=== PATIENT | female | born 1985 | race African-American/Black ===

== ENCOUNTER 2017-05-09 10:35 | Emergency (ER) | payer SELFPAY ==
[~2017-05-09] VITALS: Ht 170.2 cm; Wt 150.0 kg
[2017-05-09] MEDS ORDERED: AMMONIA INHALATION 1EA INH ONE (11:00)
[2017-05-09 11:09] LABS: BASOPHILS % 0.5 % (0.0-2.0); EOSINOPHILS % 2.9 % (0.0-5.0); HEMATOCRIT. 32.3 % (36.0-48.0); HEMOGLOBIN. 10.3 g/dL (12.0-16.0); LYMPHOCYTES % 26.3 % (20.0-50.0); MEAN CORPUSCULAR HEMOGLOBIN 22.8 pg (28.0-32.0); MEAN CORPUSCULAR VOLUME 71.8 fL (81.0-99.0); MONOCYTES % 13.1 % (2.0-8.0); NEUTROPHILS % 57.2 % (40.0-76.0); PLATELET 231 x1000/uL (130-400)
[2017-05-09 11:23] LABS: CARBON DIOXIDE 27 mEq/L (21-32); CHLORIDE 100 mEq/L (98-107); ETHANOL BLOOD < 10 mg/dL
[2017-05-09 11:36] LABS: HCG SCREEN NEGATIVE
[2017-05-09 11:49] LABS: CLARITY URINE CLEAR (CLEAR); COLOR URINE DARK YELLOW (YELLOW); GLUCOSE URINE NEGATIVE (NEGATIVE); KETONES URINE 3+ (NEGATIVE); LEUKOCYTE ESTERASE URINE NEGATIVE (NEGATIVE); NITRITE URINE NEGATIVE (NEGATIVE); OCCULT BLOOD URINE NEGATIVE (NEGATIVE); PROTEIN URINE TRACE (NEGATIVE); SPECIFIC GRAVITY URINE 1.021 (1.005-1.030)
[2017-05-09 12:09] LABS: *AMPHETAMINES SCREEN URINE NEGATIVE (NEGATIVE); *BARBITURATES SCREEN URINE NEGATIVE (NEGATIVE); *BENZODIAZEPINES SCREEN URINE NEGATIVE (NEGATIVE); *COCAINE SCREEN URINE NEGATIVE (NEGATIVE); CANNABINOID URINE SCREEN NEGATIVE (NEGATIVE); METHADONE URINE SCREEN NEGATIVE (NEGATIVE); OPIATES URINE SCREEN NEGATIVE (NEGATIVE); PHENCYCLIDINE URINE SCREEN NEGATIVE (NEGATIVE)
[2017-05-10 06:53] VITALS: BP 118/72
== END 2017-05-10 06:59 | disposition home or self-care (01) ==
LOC: ER 10:44 → EDBD 10:44 → ER 05-10 06:59
DX: R46.2 Strange and inexplicable behavior (principal)
CPT/HCPCS: 36415; 51702; 70450; 70486; 80053; 80305; 80307; 80329; 81001; 82962; 84703; 85025; 99285; G0482; J7030; Z7610; A4315